=== PATIENT | female | born 2000 | race American Indian/Alaskan Native ===

== ENCOUNTER 2019-11-09 10:38 | Emergency (ER) | payer SELFPAY ==
[2019-11-09 11:15] VITALS: BP 138/84
--- NOTE | 2019-11-09 11:36 | Emergency Department Report ---
HPI - General Chief Complaint: Abdominal Pain Time Seen by Provider: 11/09/19 11:33 - HPI HPI: This is a 19-year-old female presents to the emergency department with a complaint of a 2-month history of what she believes is a prolonged menstrual cycle. She has some lower abdominal and/or pelvic cramping and has been bleeding regularly for the past 2 months. Sometimes it is very heavy and other times it is light. She says that she was diagnosed with PCOS in the past. Also, in the past, the patient has required transfusions for these prolonged menstrual cycles. She denies any headache, shortness of breath, chest pain, fatigue, lightheadedness, or any of the symptoms that she had when she previously required a transfusion. She does not have any [facility]NAGER. She says that she was previously on some type of control for control of her abnormal cycles and the PCOS but she suddenly stopped the medication. ED Past Medical Hx - Past Medical History Previous Medical History?: No - Surgical History Past Surgical History?: No - Social History Smoking Status: Never Smoker Substance Use Type: None - Medications Home Medications: Home Medications Medication Instructions Recorded Confirmed Last Taken Type medroxyPROGESTERone ACETATE 10 mg PO QDAY #10 tablet 11/09/19 Unknown Rx [Provera] ED Review of Systems ROS: Stated complaint: CRAMPS, STOMACH PAIN Other details as noted in HPI Comment: All other systems reviewed and negative Constitutional: denies: chills, fever Eyes: denies: eye pain, vision change ENT: denies: ear pain, throat pain Respiratory: denies: cough, shortness of breath Cardiovascular: denies: chest pain, palpitations Gastrointestinal: abdominal pain. denies: vomiting Genitourinary: denies: dysuria, discharge Musculoskeletal: denies: back pain, arthralgia Skin: denies: rash, lesions Neurological: denies: headache, weakness Physical Exam - Physical Exam Vital Signs: Vital Signs 11/09/19 11:10 Temperature 98.9 F Pulse Rate 100 H Respiratory 16 Rate Blood Pressure 138/84 O2 Sat by Pulse 97 Oximetry Physical Exam: GENERAL: The patient is well-developed well-nourished. HENT: Normocephalic. Atraumatic. Patient has moist mucous membranes. EYES: Extraocular motions are intact. NECK: Supple. Trachea is midline. CHEST/LUNGS: Clear to auscultation. There is no respiratory distress noted. HEART/CARDIOVASCULAR: Regular. There is no tachycardia. There is no murmur. ABDOMEN: Abdomen is soft, nontender. Patient has normal bowel sounds. SKIN: Skin is warm and dry. NEURO: The patient is awake, alert, and oriented. The patient is cooperative. Normal speech. MUSCULOSKELETAL: There is no tenderness or deformity. ED Course Vital Signs 11/09/19 11:10 Temperature 98.9 F Pulse Rate 100 H Respiratory 16 Rate Blood Pressure 138/84 O2 Sat by Pulse 97 Oximetry ED Medical Decision Making - Lab Data Result diagrams: 11/09/19 12:05 - Medical Decision Making Patient presents to the emergency department with a complaint of a 2-month menstrual cycle with some mild cramping abdominal and pelvic pains and vaginal bleeding that is variable in intensity. Her hemoglobin is at 11.8 and she does not require any transfusion. Urinalysis was clear and the patient is not . Vital signs have been reassuring throughout her ED course. The patient will be placed on Provera and has been given outpatient referrals for [facility] groups. She will return to the ER with any worsening of her symptoms or with any acute distress. Critical Care Time: No Critical care attestation.: If time is entered above; I have spent that time in minutes in the direct care of this critically ill patient, excluding procedure time. ED Disposition Clinical Impression: Dysfunctional uterine bleeding, Abnormal menstrual cycle Disposition: DC- TO HOME OR SELFCARE Is pt being admited?: No Condition: Stable Instructions: Dysfunctional Uterine Bleeding (ED) Additional Instructions: Please follow-up with an FLIGHT K[facility]EN MANAGER and I have given you a referral for multiple local [facility] groups. Return to the emergency department with any worsening of your symptoms or with any acute distress. Prescriptions: medroxyPROGESTERone ACETATE [Provera] 10 mg PO QDAY #10 tablet Referrals: [facility] [Provider Group] - 3-5 Days [facility] [Provider Group] - 3-5 Days [facility] [Provider Group] - 3-5 Days Time of Disposition: 12:35
[2019-11-09 11:56] LABS: Bilirubin,Urine NEG (Negative); Blood,Urine NEG (Negative); Color,Urine Yellow (Yellow); Mucus,Urine FEW /HPF; Protein,Urine <15 mg/dL mg/dL (Negative); Urobilinogen,Urine < 2.0 mg/dL (<2.0)
[2019-11-09 12:00] LABS: HCG Qualitative,Urine Negative (Negative)
[2019-11-09 12:23] LABS: Basophils % (Auto) 0.4 % (0.0-1.8); Eosinophils # (Auto) 0.1 K/mm3 (0.0-0.4); Eosinophils % (Auto) 2.3 % (0.0-4.3); Hematocrit 35.6 % (30.3-42.9); Hemoglobin 11.8 gm/dl (10.1-14.3); Lymphocytes # (Auto) 1.8 K/mm3 (1.2-5.4); Lymphocytes % (Auto) 29.6 % (13.4-35.0); Mean Corpuscular HGB Conc 33 % (30-34); Mean Corpuscular Volume 86 fl (79-97); Monocytes # (Auto) 0.6 K/mm3 (0.0-0.8); Monocytes % (Auto) 9.8 % (0.0-7.3); Platelet Count 298 K/mm3 (140-440); Red Blood Count 4.15 M/mm3 (3.65-5.03)
== END 2019-11-09 12:44 | disposition home or self-care (01) ==
LOC: ED 10:38
DX: N93.8 Other specified abnormal uterine and vaginal bleeding (principal); N92.6 Irregular menstruation, unspecified; Z79.899 Other long term (current) drug therapy
CPT/HCPCS: 36415; 81001; 81025; 85025; 99283